=== PATIENT | female | born 1990 | race Caucasian/White ===

== ENCOUNTER 2020-08-14 08:20 | Inpatient (IN) | payer OTHER ==
[2020-08-14] MEDS: ELECTROLYTE-148 SOLN 1,000 ML IV SCH (09:00)
[2020-08-14] MEDS ORDERED: CITRIC ACID/SODIUM CITRATE 30 ML UNIT-DOSE CUP PO ONE (09:11)
[2020-08-14] MEDS ORDERED: ELECTROLYTE-148 SOLN 500 ML IV ONE (09:11)
[2020-08-14 09:24] VITALS: BMI 33.8
[2020-08-14] MEDS ORDERED: SUCCINYLCHOLINE CHLORIDE 200 MG/10 ML SYRINGE ONE (09:30)
[2020-08-14] MEDS ORDERED: PROPOFOL 20 ML ONE (09:30)
[2020-08-14] MEDS ORDERED: ePHEDrine SULFATE 50 MG/1 ML AMPULE ONE (09:31)
[2020-08-14] MEDS ORDERED: morphine SULFATE/PF 0.5 MG/ML (2cc Syringe - QUVA) ONE (09:55)
[2020-08-14] MEDS ORDERED: METHYLERGONOVINE MALEATE 0.2 MG/1 ML AMP IM PRN (09:56)
[2020-08-14] MEDS ORDERED: oxyCODONE HCL 5 MG TABLET PO PRN ×2 (09:56)
[2020-08-14] MEDS ORDERED: SENNOSIDES/DOCUSATE COMBO (SENNA PLUS) TABLET (UD) PO PRN (09:56)
[2020-08-14] MEDS ORDERED: ceFAZolin SODIUM 1 GM VIAL ONE (10:10)
[2020-08-14] MEDS ORDERED: OXYTOCIN 20 UNITS in 0.9% NS 20 UNIT/1,000 ML INFUS.BAG IV ONE (11:05)
[2020-08-14] MEDS: OXYTOCIN 20 UNITS in 0.9% NS 20 UNIT/1,000 ML INFUS.BAG IV SCH ×2 (11:05→18:57)
[2020-08-14] MEDS ORDERED: morphine SULFATE/PF 0.5 MG/ML (2cc Syringe - QUVA) EP ONE (11:10)
[2020-08-14] MEDS ORDERED: ONDANSETRON 4 MG/2 ML VIAL IVPUSH PRN (11:10)
[2020-08-14] MEDS: PRENATAL VITAMINS W/ FOLIC ACID TABLET (FP) PO SCH (12:05)
[2020-08-14] MEDS: IBUPROFEN 800 MG/8 ML IJ IVPB PRN ×2 (12:53→21:25)
[2020-08-14 17:25] LABS: HIV INTERPRETATION NEGATIVE (NEGATIVE)
[2020-08-15] MEDS: IBUPROFEN 800 MG/8 ML IJ IVPB PRN (06:28)
[2020-08-15 09:39] LABS: BASO % 0.3 % (0-2.0); EOS % 0.7 % (0-4.5); HEMATOCRIT 32.6 % (32.4-45.2); HEMOGLOBIN 11.3 GM/dL (10.7-15.3); LYMPH % 14.2 % (8-40); MCHC 34.8 g/dl (32.0-36.0); MEAN CELL VOLUME 95.1 fl (80-96); MEAN PLT VOLUME 7.8 fl (7.5-11.1); MONO % 6.8 % (3.8-10.2); PLATELET COUNT 185 K/MM3 (134-434); RBC 3.43 M/mm3 (3.60-5.2); RDW 12.8 % (11.6-15.6); WHITE BLOOD COUNT 10.1 K/mm3 (4.0-10.0)
[2020-08-15] MEDS ORDERED: BISACODYL 10 MG SUPP.RECT RC PRN (09:56)
[2020-08-15] MEDS: ELECTROLYTE-148 SOLN 1,000 ML IV SCH (09:57)
[2020-08-15] MEDS ORDERED: DIPHTH,PERTUSS(ACELL),TET 0.5 ML DISP.SYRIN IM ONE (10:00)
[2020-08-15] MEDS: PRENATAL VITAMINS W/ FOLIC ACID TABLET (FP) PO SCH (10:01)
[2020-08-15] MEDS: OXYTOCIN 20 UNITS in 0.9% NS 20 UNIT/1,000 ML INFUS.BAG IV SCH (10:02)
[2020-08-15] MEDS: IBUPROFEN 600 MG TABLET (FP) PO PRN ×2 (11:19→18:35)
[2020-08-15] MEDS: ACETAMINOPHEN 325 MG TABLET (FP) PO PRN ×2 (11:20→18:35)
[2020-08-15 23:12] VITALS: TEMP 97.9
[2020-08-16] MEDS: IBUPROFEN 600 MG TABLET (FP) PO PRN ×2 (05:53→13:29)
[2020-08-16] MEDS: ACETAMINOPHEN 325 MG TABLET (FP) PO PRN ×2 (05:55→13:29)
[2020-08-16] MEDS: SIMETHICONE 80 MG TAB.CHEW (FP) PO PRN ×2 (05:56→13:29)
[2020-08-16] MEDS: PRENATAL VITAMINS W/ FOLIC ACID TABLET (FP) PO SCH (09:16)
[2020-08-16 09:20] VITALS: BP 117/77; PULSE 73
== END 2020-08-16 13:00 | disposition home or self-care (01) | DRG 540 ==
LOC: JLDR 08:20 → J3W 12:25
PROVIDERS: ADMIT Obstetrics & Gynecology; ATTEND Obstetrics & Gynecology
PROC: 10D00Z1 Extraction of Products of Conception, Low, Open Approach (ICD-10-PCS; principal; 2020-08-14)
DX: O34.219 Maternal care for unspecified type scar from previous cesarean delivery (principal); O36.5930 Maternal care for other known or suspected poor fetal growth, third trimester, not applicable or unspecified; Z3A.38 38 weeks gestation of pregnancy; Z37.0 Single live birth
CPT/HCPCS: 36415; 85025; 86762; 87340; 87389; 88307-TC; 90715